=== PATIENT | female | born 1980 | race Caucasian/White ===

== ENCOUNTER 2019-03-19 23:00 | Emergency (ER) | payer SELFPAY ==
[~2019-03-19] VITALS: Ht 167.6 cm; Wt 69.0 kg
[2019-03-20] MEDS ORDERED: LIDOCAINE HCL/EPINEPHRINE 1%-EPI 1:100,000 30 ML VIAL INFIL ONE (03:30)
[2019-03-20] MEDS ORDERED: TETANUS, DIPHTHERIA, PERTUSSIS VAC/PF 0.5ML (>7YR OLD) IM ONE (03:30)
[2019-03-20 06:48] VITALS: BP 138/80
== END 2019-03-20 06:58 | disposition home or self-care (01) ==
LOC: ER 23:00
DX: S81.812A Laceration without foreign body, left lower leg, initial encounter (principal); S80.02XA Contusion of left knee, initial encounter; S80.01XA Contusion of right knee, initial encounter; S80.211A Abrasion, right knee, initial encounter; W01.0XXA Fall on same level from slipping, tripping and stumbling without subsequent striking against object, initial encounter; Y93.89 Activity, other specified; Y92.89 Other specified places as the place of occurrence of the external cause; Y99.8 Other external cause status
CPT/HCPCS: 12002; 73560; 90471; 90715; 99283; Z7610